=== PATIENT | male | born 1975 | race Caucasian/White ===

== ENCOUNTER 2017-03-14 21:41 | Observation (INO) | payer BC ==
[~2017-03-14] VITALS: Ht 172.7 cm; Wt 80.0 kg
[~2017-03-14 21:41] MED LIST: GLUCTAB PO; KCL10C PO; LEVO.025 PO; LISI10 PO; METF-324 PO; METF1000 PO
[2017-03-14 22:03] VITALS: BP 200/103; PULSE 64; RESP 20; TEMP 97.6; O2SAT 100
[2017-03-14] MEDS ORDERED: SODIUM CHLOR 0.9% 1000 ML INJ 1,000 ML IV SCH (22:13)
[2017-03-14] MEDS ORDERED: SODIUM CHLORIDE 0.9% FLUSH 10 ML FLUSH IV FLUSH PRN (22:15)
[2017-03-14] MEDS ORDERED: ONDANSETRON HCL 4 MG/2 ML VIAL IVP ONE (22:15)
[2017-03-14 22:29] LABS: AUTOMATED NEUTROPHIL # 9.1 TH/MM3 (1.8-7.7); BASOPHIL # 0.1 TH/MM3 (0-0.2); HEMATOCRIT 50.6 % (39.0-51.0); HEMOGLOBIN 16.7 GM/DL (13.0-17.0); LYMPH % 13.9 % (9.0-44.0); LYMPHOCYTE # 1.5 TH/MM3 (1.0-4.8); MEAN CORPUSCULAR HEMOGLOBIN 28.3 PG (27.0-34.0); MEAN PLATELET VOLUME 7.9 FL (7.0-11.0); MONO % 3.9 % (0.0-8.0); MONOCYTE # 0.4 TH/MM3 (0-0.9); NEUT % 81.2 % (16.0-70.0); PLATELET COUNT 264 TH/MM3 (150-450); RED BLOOD COUNT 5.88 MIL/MM3 (4.50-5.90); RED CELL DISTRIBUTION WIDTH 12.2 % (11.6-17.2); WHITE BLOOD COUNT 11.1 TH/MM3 (4.0-11.0)
[2017-03-14 22:40] LABS: CHLORIDE 101 MEQ/L (98-107); SODIUM (NA) 134 MEQ/L (136-145)
[2017-03-14 22:43] LABS: ALBUMIN 3.5 GM/DL (3.4-5.0); BICARBONATE 18.5 MEQ/L (21.0-32.0); BLOOD UREA NITROGEN 15 MG/DL (7-18); CALCIUM 9.2 MG/DL (8.5-10.1); GLUCOSE,RANDOM 349 MG/DL (74-106)
[2017-03-14 22:46] LABS: ALT (GPT) 39 U/L (12-78); AST (GOT) 29 U/L (15-37); GLOMERULAR FILTRATION RATE 67 ML/MIN (>89)
[2017-03-14 22:47] VITALS: BP 207/106; PULSE 60; RESP 18; O2SAT 99
[2017-03-14 22:48] LABS: TOTAL BILIRUBIN ADULT 0.7 MG/DL (0.2-1.0); TOTAL PROTEIN 7.8 GM/DL (6.4-8.2)
[2017-03-14 22:49] LABS: ALKALINE PHOSPHATASE 81 U/L (45-117)
[2017-03-14 22:56] LABS: BANDS 12 % (0-6); LYMPHOCYTES 11 % (9-44); MONOCYTES 4 % (0-8); NEUTROPHIL # MANUAL DIFF 9.4 TH/MM3 (1.8-7.7); POLYS (SEG NEUTROPHILS) 73 % (16-70)
[2017-03-14] MEDS: SODIUM CHLOR 0.9% 1000 ML INJ 1,000 ML IV SCH (22:56)
[2017-03-14] MEDS ORDERED: hydrALAZINE HCL 20 MG/ML VIAL IV PUSH ONE (23:00)
[2017-03-14] MEDS ORDERED: ONDANSETRON HCL 4 MG/2 ML VIAL IV ONE (23:00)
[2017-03-14] MEDS ORDERED: IOHEXOL 350 MG/ML 10 ML VIAL (for RAD DIAG) IVCONTRAST ONE (23:20)
--- NOTE | 2017-03-14 23:47 | RADRPT ---
EXAM DATE/TIME: 03/14/2017 23:17 [place] COMPARISON: CT ABDOMEN & PELVIS W CONTRAST, March 07, 2014, 21:12. INDICATIONS : Vomiting X 4 days IV CONTRAST: 96 cc Omnipaque 350 (iohexol) IV ORAL CONTRAST: No oral contrast ingested. RADIATION DOSE: 9.23 CTDIvol (mGy) MEDICAL HISTORY : Diabetes mellitus type 2. Hypertension. SURGICAL HISTORY : None. ENCOUNTER: Initial ACUITY: 4 - 6 days PAIN SCALE: 0/10 LOCATION: abdominal TECHNIQUE: Volumetric scanning of the abdomen and pelvis was performed. Using automated exposure control and ad justment of the mA and/or kV according to patient size, radiation dose was kept as low as reasonably achievable to obtain optimal diagnostic quality images. DICOM format image data is available electro nically for review and comparison. FINDINGS: The lung bases are clear. The osseous structures are intact. No pleural or pericardial effusions. Mil d hepatic steatosis. In the right lobe of the liver posteriorly a low-density focus is noted and inco mpletely characterized on this study measured 1.5 cm. Gallbladder, spleen, pancreas, adrenal glands, bilateral kidneys are normal in appearance. Stomach unremarkable. Urinary bladder is unremarkable. Th ere are calcifications of the vas deferens bilaterally. There is no evidence for bowel obstruction. A ppendix is normal. Prostate unremarkable. A few scattered colonic diverticuli are seen without eviden ce of diverticulitis. No free fluid or free air. Small bowel loops are unremarkable. CONCLUSION: 1. Hepatic steatosis. 2. Low-density liver lesion incompletely characterized on this study. Hemangioma would be the leading consideration. 3. A few diverticuli without evidence of diverticulitis. Sid Ashraf MD on March 14, 2017 at 23:41 Board Certified Radiologist. This report was verified electronically.
[2017-03-14 23:55] VITALS: BP 185/98; PULSE 70; RESP 18; O2SAT 100
--- NOTE | 2017-03-14 23:55 | PD ---
HPI Chief Complaint: GI Complaint Time Seen by Provider: 22:41 Travel History International Travel<30 days: No Contact w/Intl Traveler<30days: No Traveled to known affect area: No History of Present Illness HPI The patient is a 41-year-old male that states he has been vomiting for 3 days. He does have diarrhea. He feels extremely dehydrated. According to his girlfriend who has checked his blood sugars, his blood sugars have been in the 300 range. He is a metformin/glyburide controlled diabetic. He does not take insulin. His pain is a crampy pain and a 3/10. He denies any blood in the vomitus or stool. PFSH Past Medical History Autoimmune Disease: No Anxiety: Yes Depression: Yes Heart Rhythm Problems: No Cancer: No Cardiovascular Problems: Yes (HTN) High Cholesterol: Yes Chest Pain: Yes (STATES OCCASIONAL CHEST PAIN IF UNDER STRESS) Congestive Heart Failure: No Diabetes: Yes Patient Takes Glucophage: Yes Diminished Hearing: No Endocrine: Yes Gastrointestinal Disorders: Yes GERD: No Genitourinary: No Hiatal Hernia: No Hypertension: Yes Immune Disorder: No Implanted Vascular Access Dvce: No Musculoskeletal: Yes Neurologic: No Psychiatric: Yes (ANGER MANAGEMENT) Reproductive: No Respiratory: No Sickle Cell Disease: No Thyroid Disease: Yes Tetanus Vaccination: Unknown Influenza Vaccination: No ?: Not Past Surgical History Surgical History: No Previous Surgery Other Surgery: No Social History Alcohol Use: Yes Tobacco Use: No Substance Use: Yes (MARIJUANA daily) Allergies-Medications (Allergen,Severity, Reaction): Coded Allergies: shellfish derived (Unverified Allergy, Severe, Anaphylaxis, 03/15/17) Reported Meds & Prescriptions Reported Meds & Active Scripts Active Metformin (Metformin HCl) 1,000 Mg Tab 1,000 Mg PO BIDPC With meals Review of Systems Except as stated in HPI: all other systems reviewed are Neg Physical Exam Narrative GENERAL: The patient is alert, oriented 3 in moderate distress with his abdominal pain and persistent vomiting. He appears at least moderately dehydrated. His vital signs show blood pressure 200/103 but the rest of the vital signs are normal. SKIN: Focused skin assessment warm/dry. HEAD: Atraumatic. Normocephalic. EYES: Pupils equal and round. No scleral icterus. No injection or drainage. ENT: No nasal bleeding or discharge. Mucous membranes pink and moist. NECK: Trachea midline. No JVD. CARDIOVASCULAR: Regular rate and rhythm. No murmur appreciated. RESPIRATORY: No accessory muscle use. Clear to auscultation. Breath sounds equal bilaterally. GASTROINTESTINAL: Abdomen soft, with diffuse tenderness all 4 quadrants to direct palpation, nondistended. Hepatic and splenic margins not palpable. No guarding or rebound is present. MUSCULOSKELETAL: No obvious deformities. No clubbing. No cyanosis. No edema. NEUROLOGICAL: Awake and alert. No obvious cranial nerve deficits. Motor grossly within normal limits. Normal speech. PSYCHIATRIC: Appropriate mood and affect; insight and judgment normal. Data Data Last Documented VS Vital Signs Date Time Temp Pulse Resp B/P (MAP) Pulse Ox O2 Delivery O2 Flow Rate FiO2 03/14/17 23:55 70 18 185/98 (127) 100 Room Air 03/14/17 22:03 97.6 Orders Orders Complete Blood Count With Diff (03/14/17 22:13) Comprehensive Metabolic Panel (03/14/17 22:13) Lipase (03/14/17 22:13) Urinalysis - C+S If Indicated (03/14/17 22:13) Iv Access Insert/Monitor (03/14/17 22:13) Ecg Monitoring (03/14/17 22:13) Oximetry (03/14/17 22:13) Ondansetron Inj (Zofran Inj) (03/14/17 22:15) Sodium Chlor 0.9% 1000 Ml Inj (Ns 1000 M (03/14/17 22:13) Sodium Chloride 0.9% Flush (Ns Flush) (03/14/17 22:15) Beta Hydroxybutyrate (Acetone) (03/14/17 22:20) Hydralazine Inj (Apresoline Inj) (03/14/17 23:00) Sodium Chlor 0.9% 1000 Ml Inj (Ns 1000 M (03/14/17 23:00) Ondansetron Inj (Zofran Inj) (03/14/17 23:00) Ct Abd/Pel W Iv Contrast(Rout) (03/14/17 22:48) Iohexol 350 Inj (Omnipaque 350 Inj) (03/14/17 23:20) Prochlorperazine Inj (Compazine Inj) (03/15/17 00:00) Insulin Human Regular Inj (Novolin R Inj (03/15/17 00:15) Place In Observation (03/15/17 ) Vital Signs (Adult) Q4H (03/15/17 00:25) Activity Oob With Assistance (03/15/17 00:25) Diet Npo (03/15/17 Breakfast) Sodium Chlor 0.9% 1000 Ml Inj (Ns 1000 M (03/15/17 00:25) Sodium Chloride 0.9% Flush (Ns Flush) (03/15/17 00:30) Sodium Chloride 0.9% Flush (Ns Flush) (03/15/17 09:00) Acetaminophen (Tylenol) (03/15/17 00:30) Ondansetron Inj (Zofran Inj) (03/15/17 00:30) Comprehensive Metabolic Panel (03/16/17 06:00) Complete Blood Count With Diff (03/16/17 06:00) Scd Bilateral/Knee High ZOLTAN.BID (03/15/17 00:25) Naloxone Inj (Narcan Inj) (03/15/17 00:30) Docusate Sodium-Senna (Laura-Colace) (03/15/17 09:00) Magnesium Hydroxide Liq (Milk Of Magnesi (03/15/17 00:30) Sennosides (Senokot) (03/15/17 00:30) Bisacodyl Supp (Dulcolax Supp) (03/15/17 00:30) Lactulose Liq (Lactulose Liq) (03/15/17 00:30) Prochlorperazine Inj (Compazine Inj) (03/15/17 00:30) Bedside Glucose ZOLTAN.CSUGAR&03 (03/15/17 00:25) Blood Glucose Goal (Criteria) (03/15/17 00:25) Hypoglycemia 70 Mg/Dl Or < (03/15/17 00:25) Notify Dr: Other (03/15/17 00:25) Dextrose 50% In Valeriy (Vial) Inj (D50w (Vi (03/15/17 00:30) Glucagon Inj (Glucagon Inj) (03/15/17 00:30) Insulin Aspart Supplemtl Scale (Novolog (03/15/17 08:00) Basic Metabolic Panel (Bmp) (03/15/17 01:00) Labs Laboratory Tests Test 03/14/17 22:20 03/15/17 00:24 White Blood Count 11.1 TH/MM3 Red Blood Count 5.88 MIL/MM3 Hemoglobin 16.7 GM/DL Hematocrit 50.6 % Mean Corpuscular Volume 86.0 FL Mean Corpuscular Hemoglobin 28.3 PG Mean Corpuscular Hemoglobin Concent 33.0 % Red Cell Distribution Width 12.2 % Platelet Count 264 TH/MM3 Mean Platelet Volume 7.9 FL Neutrophils (%) (Auto) 81.2 % Lymphocytes (%) (Auto) 13.9 % Monocytes (%) (Auto) 3.9 % Eosinophils (%) (Auto) 0.0 % Basophils (%) (Auto) 1.0 % Neutrophils # (Auto) 9.1 TH/MM3 Lymphocytes # (Auto) 1.5 TH/MM3 Monocytes # (Auto) 0.4 TH/MM3 Eosinophils # (Auto) 0.0 TH/MM3 Basophils # (Auto) 0.1 TH/MM3 CBC Comment AUTO DIFF Differential Total Cells Counted 100 Neutrophils % (Manual) 73 % Band Neutrophils % 12 % Lymphocytes % 11 % Monocytes % 4 % Neutrophils # (Manual) 9.4 TH/MM3 Differential Comment FINAL DIFF MANUAL Platelet Estimate NORMAL Platelet Morphology Comment NORMAL Red Cell Morphology Comment NORMAL Blood Urea Nitrogen 15 MG/DL Creatinine 1.20 MG/DL Random Glucose 349 MG/DL Total Protein 7.8 GM/DL Albumin 3.5 GM/DL Calcium Level 9.2 MG/DL Alkaline Phosphatase 81 U/L Aspartate Amino Transf (AST/SGOT) 29 U/L Alanine Aminotransferase (ALT/SGPT) 39 U/L Total Bilirubin 0.7 MG/DL Sodium Level 134 MEQ/L Potassium Level 3.8 MEQ/L Chloride Level 101 MEQ/L Carbon Dioxide Level 18.5 MEQ/L Anion Gap 15 MEQ/L Estimat Glomerular Filtration Rate 67 ML/MIN Lipase 83 U/L B-Hydroxybutyrate 3.01 MMOL/L [facility] Medical Decision Making Medical Screen Exam Complete: Yes Emergency Medical Condition: Yes Medical Record Reviewed: Yes Interpretation(s) The CBC shows a white count of 11,100 but is otherwise unremarkable. The complete metabolic profile shows a sodium of 134, bicarbonate of 18.5, glucose of 349 and GFR 67 but is otherwise unremarkable. The lipase is normal. The anion gap is 15. Differential Diagnosis Viral gastroenteritis, diabetic ketoacidosis, dehydration, electrolyte disorder , pancreatitis Narrative Course The patient has elevated blood sugar and elevated beta hydroxybutyrate in the blood but does not have diabetic ketoacidosis. The anion gap is only 15. The patient is not breathing rapidly. He does have intractable vomiting and is still vomiting after 8 mg of Zofran until milligrams of Compazine. He needs to be admitted for IV fluids, IV antiemetics and IV insulin. He has already gotten 15 units of insulin IV. I discussed the patient with Dr. Schafer, the patient will be admitted to her here at [facility]. Physician Communication Physician Communication I discussed the patient with Dr. Schafer, the patient will be admitted to her here at [employer]. Diagnosis Primary Impression: Intractable vomiting Additional Impressions: Dehydration, moderate Poorly controlled diabetes mellitus Admitting Information Admitting Physician Requests: Admit Osiel Geronimo MD Mar 14, 2017 23:55
[2017-03-15] MEDS ORDERED: PROCHLORPERAZINE INJ 10 MG/2 ML VIAL IV PUSH ONE
[2017-03-15] MEDS ORDERED: INSULIN HUMAN REGULAR 1,000 UNITS/10 ML VIAL IV PUSH ONE (00:15)
[2017-03-15] MEDS ORDERED: PROCHLORPERAZINE INJ 10 MG/2 ML VIAL IM PRN (00:30)
[2017-03-15] MEDS ORDERED: LACTULOSE SYRUP 20 GM/30 ML CUP PO PRN (00:30)
[2017-03-15] MEDS ORDERED: BISACODYL 10 MG SUPP RECTAL PRN (00:30)
[2017-03-15] MEDS ORDERED: MAGNESIUM HYDROXIDE SUSP 30 ML CUP PO PRN (00:30)
[2017-03-15] MEDS ORDERED: GLUCAGON 1 MG/ML VIAL OTHER PRN (00:30)
[2017-03-15] MEDS ORDERED: SODIUM CHLORIDE 0.9% FLUSH 10 ML FLUSH IV FLUSH PRN (00:30)
[2017-03-15] MEDS ORDERED: ACETAMINOPHEN 325 MG TAB PO PRN (00:30)
[2017-03-15] MEDS ORDERED: DEXTROSE 50% IN WATER 50 ML VIAL(D50) IV PUSH PRN (00:30)
[2017-03-15] MEDS ORDERED: NALOXONE HCL 0.4 MG/ML AMP IV PUSH PRN (00:30)
[2017-03-15] MEDS ORDERED: SENNOSIDES 8.6 MG TAB PO PRN (00:30)
[2017-03-15 00:46] LABS: BILIRUBIN, URINE NEG (NEG); BLOOD, URINE TRACE (NEG); GLUCOSE,URINE 1000 OR GREATER mg/dL (NEG); KETONE, URINE 40 mg/dL (NEG); NITRITE,URINE NEG (NEG); URINE LEUKOCYTE ESTERASE NEG (NEG)
[2017-03-15 00:51] LABS: URINE COLOR YELLOW (YELLW/STRAW)
[2017-03-15 00:52] LABS: RBC, URINE 0-2 /hpf (0-3); SQUAMOUS EPITHELIAL CELL URINE 0-5 /hpf (0-5); WBC, URINE 0-2 /hpf (0-5)
[2017-03-15] MEDS: SODIUM CHLOR 0.9% 1000 ML INJ 1,000 ML IV SCH ×5 (01:21→21:01)
[2017-03-15 01:32] LABS: BICARBONATE 19.3 MEQ/L (21.0-32.0); CALCIUM 8.2 MG/DL (8.5-10.1); CREATININE 1.1 MG/DL (0.60-1.30)
[2017-03-15 02:17] VITALS: BP 162/93; PULSE 66; RESP 22; TEMP 99.4; O2SAT 99
[2017-03-15 08:00] VITALS: BP 180/90; PULSE 61; RESP 18; TEMP 98; O2SAT 98
[2017-03-15] MEDS: SODIUM CHLORIDE 0.9% FLUSH 10 ML FLUSH IV FLUSH SCH ×2 (08:09→21:00)
[2017-03-15] MEDS: DOCUSATE SODIUM 50 MG/SENNA 8.6 MG TAB PO SCH ×2 (08:09→21:00)
[2017-03-15] MEDS: INSULIN ASPART SUPPLEMENTAL SCALE SQ SCH ×4 (08:50→21:00)
[2017-03-15 10:04] LABS: AUTOMATED NEUTROPHIL # 6.8 TH/MM3 (1.8-7.7); BASOPHIL % 0.4 % (0.0-2.0); EOSINOPHIL # 0.1 TH/MM3 (0-0.4); EOSINOPHIL % 1.5 % (0.0-4.0); HEMATOCRIT 43.7 % (39.0-51.0); HEMOGLOBIN 15.4 GM/DL (13.0-17.0); LYMPH % 15.6 % (9.0-44.0); LYMPHOCYTE # 1.4 TH/MM3 (1.0-4.8); MEAN CELL VOLUME 86.1 FL (80.0-100.0); MEAN CORPUSCULAR HEMOGLOBIN 30.3 PG (27.0-34.0); MEAN CORPUSCULAR HGB CONC 35.2 % (32.0-36.0); MEAN PLATELET VOLUME 8.1 FL (7.0-11.0); MONO % 5.3 % (0.0-8.0); MONOCYTE # 0.5 TH/MM3 (0-0.9); NEUT % 77.2 % (16.0-70.0); PLATELET COUNT 228 TH/MM3 (150-450); RED BLOOD COUNT 5.07 MIL/MM3 (4.50-5.90); RED CELL DISTRIBUTION WIDTH 12.2 % (11.6-17.2); WHITE BLOOD COUNT 8.8 TH/MM3 (4.0-11.0)
[2017-03-15] MEDS: ONDANSETRON HCL 4 MG/2 ML VIAL IVP PRN ×3 (10:12→23:16)
[2017-03-15 10:27] LABS: BICARBONATE 20.7 MEQ/L (21.0-32.0); MAGNESIUM 1.9 MG/DL (1.5-2.5)
[2017-03-15 10:30] LABS: CREATININE 0.97 MG/DL (0.60-1.30)
[2017-03-15 12:00] VITALS: BP 130/67; PULSE 60; RESP 20; TEMP 98.5; O2SAT 97
--- NOTE | 2017-03-15 12:36 | HHI.HP ---
HPI Service [facility] Primary Care Physician No Primary Care Physician Admission Diagnosis intractable vomiting, dehydration, diabetes mellitus poor control Diagnoses: (1) Intractable nausea and vomiting Diagnosis: Principal (2) Diabetic ketoacidosis Diagnosis: Principal Chief Complaint: Nausea vomiting Travel History International Travel<30 Days: No Contact w/Intl Traveler <30 Da: No Traveled to Known Affected Are: No History of Present Illness 41-year-old male with known history of diabetes, hypertension who presented to the hospital because of nausea vomiting. Patient states that all her symptoms started on Saturday when he went to the [facility] and was diagnosed with influenza B. He was discharged with 3 medications, however he does not know the name. At that time his blood sugars were 200s. Patient is not checking his sugars on a regular basis. Patient states that he was doing well on Saturday but then he started having intractable nausea vomiting, he was not able to tolerate any liquids or solids. Because of that reason he came to emergency department for evaluation. Patient had workup done emergency department found to have metabolic acidosis, elevated beta hydroxybutyrate, because of his intractable nausea vomiting is recommended by ER physician that the patient be observed in the hospital. Review of Systems Gastrointestinal: COMPLAINS OF: Nausea, Vomiting Except as stated in HPI: all other systems reviewed are Neg Past Family Social History Past Medical History Diabetes Hypertension Past Surgical History Patient denies any outpatient surgeries Reported Medications Reported Meds & Active Scripts Active Metformin (Metformin HCl) 1,000 Mg Tab 1,000 Mg PO BIDPC With meals Allergies: Coded Allergies: shellfish derived (Unverified Allergy, Severe, Anaphylaxis, 03/15/17) Family History Reviewed and significant for mother with hypertension, diabetes. Father from cancer Social History Patient does smoke one pack a cigarettes a weeks for the last 2 months. Does drink alcohol on the weekends. He does smoke marijuana daily Physical Exam Vital Signs Vital Signs Date Time Temp Pulse Resp B/P (MAP) Pulse Ox O2 Delivery O2 Flow Rate FiO2 03/15/17 08:00 98.0 61 18 180/90 (120) 98 03/15/17 02:17 99.4 66 22 162/93 (116) 99 2/2/18 01:51 03/14/17 23:55 70 18 185/98 (127) 100 Room Air 03/14/17 22:47 60 18 207/106 (139) 99 Room Air 03/14/17 22:03 97.6 64 20 200/103 (135) 100 Physical Exam GENERAL: Well-developed, well-nourished, in no acute distress. alert and orientated HEENT: Head is normocephalic without any lesions or masses noted. Facial features are symmetric. Eyes: Pupils equal round reactive to light. Extraocular muscles are intact. Conjunctivae were clear. Oropharyngeal: Pharynx without any erythema edema. Tongue is midline without deviation. Buccal mucosa is moist without any masses or lesions NECK: Supple without any masses. Trachea midline no deviation. No JVD, no bruits are appreciated CARDIAC: Regular rhythm, regular rate. S1/S2 are heard. No murmurs gallops or rubs. LUNGS: Clear to auscultation bilaterally. No wheeze, rhonchi or rales. No use of accessory muscles on inspiration or expiration. ABDOMEN: Soft, nontender. Nondistended. Bowel sounds heard in all 4 quadrants. No organomegaly or masses. Negative rebound, negative guarding EXTREMITIES: No edema, pulses are equal bilaterally. No cyanosis or clubbing NEUROLOGY: Mood and affect appear appropriate. Cranial nerves II through XII grossly intact. Muscle strength 5/5 in upper and lower extremities bilaterally. Deep tendon reflexes are 2+ in upper and lower extremities bilaterally. Laboratory Laboratory Tests Test 03/14/17 22:20 03/15/17 00:24 03/15/17 00:58 03/15/17 09:25 White Blood Count 11.1 8.8 Red Blood Count 5.88 5.07 Hemoglobin 16.7 15.4 Hematocrit 50.6 43.7 Mean Corpuscular Volume 86.0 86.1 Mean Corpuscular Hemoglobin 28.3 30.3 Mean Corpuscular Hemoglobin Concent 33.0 35.2 Red Cell Distribution Width 12.2 12.2 Platelet Count 264 228 Mean Platelet Volume 7.9 8.1 Neutrophils (%) (Auto) 81.2 77.2 Lymphocytes (%) (Auto) 13.9 15.6 Monocytes (%) (Auto) 3.9 5.3 Eosinophils (%) (Auto) 0.0 1.5 Basophils (%) (Auto) 1.0 0.4 Neutrophils # (Auto) 9.1 6.8 Lymphocytes # (Auto) 1.5 1.4 Monocytes # (Auto) 0.4 0.5 Eosinophils # (Auto) 0.0 0.1 Basophils # (Auto) 0.1 0.0 CBC Comment AUTO DIFF DIFF FINAL Differential Total Cells Counted 100 Neutrophils % (Manual) 73 Band Neutrophils % 12 Lymphocytes % 11 Monocytes % 4 Neutrophils # (Manual) 9.4 Differential Comment FINAL DIFF MANUAL Platelet Estimate NORMAL Platelet Morphology Comment NORMAL Red Cell Morphology Comment NORMAL Blood Urea Nitrogen 15 16 15 Creatinine 1.20 1.10 0.97 Random Glucose 349 293 261 Total Protein 7.8 Albumin 3.5 Calcium Level 9.2 8.2 8.0 Alkaline Phosphatase 81 Aspartate Amino Transf (AST/SGOT) 29 Alanine Aminotransferase (ALT/SGPT) 39 Total Bilirubin 0.7 Sodium Level 134 139 139 Potassium Level 3.8 3.2 3.8 Chloride Level 101 107 106 Carbon Dioxide Level 18.5 19.3 20.7 Anion Gap 15 13 12 Estimat Glomerular Filtration Rate 67 75 86 Lipase 83 B-Hydroxybutyrate 3.01 2.62 Urine Color YELLOW Urine Turbidity CLEAR Urine pH 6.0 Urine Specific Lipan GREATER THAN 1.035 Urine Protein 30 Urine Glucose (UA) 1000 OR GREATER Urine Ketones 40 Urine Occult Blood TRACE Urine Nitrite NEG Urine Bilirubin NEG Urine Leukocyte Esterase NEG Urine RBC 0-2 Urine WBC 0-2 Urine Squamous Epithelial Cells 0-5 Urine Bacteria NONE Microscopic Urinalysis Comment CULT NOT INDICATED Magnesium Level 1.9 Result Diagram: 03/15/1792403/15/17924 Imaging Last Impressions Abdomen/Pelvis CT 03/14/17 9816 Signed Impressions: Service Date/Time: March 23:17 - CONCLUSION: 1. Hepatic steatosis. 2. Low-density liver lesion incompletely characterized on this study. Hemangioma would be the leading consideration. 3. A few diverticuli without evidence of diverticulitis. MD Margret Curiel VTE Risk Assessment Margret VTE Risk Assessment: No/Low Risk (score <= 1) Caprini Risk Assessment Model Point Value = 1 Point Value = 2 Point Value = 3 Point Value = 5 Age 41-60 Minor surgery BMI > 25 kg/m2 Swollen legs Varicose veins or History of unexplained or recurrent spontaneous Oral contraceptives or hormone replacement Sepsis (< 1 month) Serious lung disease, including pneumonia (< 1 month) Abnormal pulmonary function Acute myocardial infarction Congestive heart failure (< 1 month) History of inflammatory bowel disease Medical patient at bed rest Age 61-74 Arthroscopic surgery Major open surgery (> 45 min) Laparoscopic surgery (> 45 min) Malignancy Confined to bed (> 72 hours) Immobilizing plaster cast Central venous access Age >= 75 History of VTE Family history of VTE Factor V Leiden Prothrombin [id number] Lupus anticoagulant Anticardiolipin antibodies Elevated serum homocysteine Heparin-induced thrombocytopenia Other congenital or acquired thrombophilia Stroke (< 1 month) Elective arthroplasty Hip, pelvis, or leg fracture Acute spinal cord injury (< 1 month) Prophylaxis Regimen Total Risk Factor Score Risk Level Prophylaxis Regimen 0-1 Low Early ambulation 2 Moderate Order ONE of the following: *Sequential Compression Device (SCD) *Heparin 5000 units SQ BID 3-4 Higher Order ONE of the following medications: *Heparin 5000 units SQ TID *Enoxaparin/Lovenox 40 mg SQ daily (WT < 150 kg, CrCl > 30 mL/min) *Enoxaparin/Lovenox 30 mg SQ daily (WT < 150 kg, CrCl > 10-29 mL/min) *Enoxaparin/Lovenox 30 mg SQ BID (WT < 150 kg, CrCl > 30 mL/min) AND/OR *Sequential Compression Device (SCD) 5 or more Highest Order ONE of the following medications: *Heparin 5000 units SQ TID (Preferred with Epidurals) *Enoxaparin/Lovenox 40 mg SQ daily (WT < 150 kg, CrCl > 30 mL/min) *Enoxaparin/Lovenox 30 mg SQ daily (WT < 150 kg, CrCl > 10-29 mL/min) *Enoxaparin/Lovenox 30 mg SQ BID (WT < 150 kg, CrCl > 30 mL/min) AND *Sequential Compression Device (SCD) Assessment and Plan Assessment and Plan Non-anion gap metabolic acidosis in a patient with diabetes Diabetes uncontrolled with elevated beta hydroxybutyrate, pseudohyponatremia, Continue IV fluids continue monitor BMP Accu-Cheks with sliding scale insulin intractable nausea vomiting, resolved Could be secondary to recent influenza diagnosis, metabolic acidosis, cyclic vomiting from daily marijuana use Continue IV fluids Zofran as needed for nausea vomiting Advance diet as tolerated Hypertension, untreated Start lisinopril 10 mg daily Clonidine as needed DVT prevention low risk, early ambulation Miah Geronimo Mar 15, 2017 12:36
[2017-03-15] MEDS ORDERED: cloNIDine HCL 0.1 MG TAB PO PRN (12:45)
[2017-03-15] MEDS: LISINOPRIL 10 MG TAB PO SCH (14:08)
[2017-03-15 14:45] LABS: HEMOGLOBIN A1C 10.4 % (4.3-6.0)
[2017-03-15 16:00] VITALS: BP 130/70; PULSE 77; RESP 18; TEMP 98.8; O2SAT 97
[2017-03-15 20:00] VITALS: BP 182/93; PULSE 62; RESP 20; TEMP 98.3; O2SAT 100
[2017-03-16] VITALS: BP 171/88; PULSE 59; RESP 20; TEMP 98.3; O2SAT 99
[2017-03-16] MEDS: SODIUM CHLOR 0.9% 1000 ML INJ 1,000 ML IV SCH ×2 (04:01→08:29)
[2017-03-16 06:58] LABS: AUTOMATED NEUTROPHIL # 7.4 TH/MM3 (1.8-7.7); BASOPHIL # 0.2 TH/MM3 (0-0.2); BASOPHIL % 2.3 % (0.0-2.0); EOSINOPHIL % 0.1 % (0.0-4.0); HEMATOCRIT 44.2 % (39.0-51.0); HEMOGLOBIN 14.6 GM/DL (13.0-17.0); LYMPH % 16.7 % (9.0-44.0); LYMPHOCYTE # 1.7 TH/MM3 (1.0-4.8); MEAN CELL VOLUME 85.4 FL (80.0-100.0); MEAN CORPUSCULAR HEMOGLOBIN 28.1 PG (27.0-34.0); MEAN PLATELET VOLUME 7.6 FL (7.0-11.0); MONO % 7.8 % (0.0-8.0); MONOCYTE # 0.8 TH/MM3 (0-0.9); NEUT % 73.1 % (16.0-70.0); PLATELET COUNT 211 TH/MM3 (150-450); RED BLOOD COUNT 5.18 MIL/MM3 (4.50-5.90); RED CELL DISTRIBUTION WIDTH 11.8 % (11.6-17.2); WHITE BLOOD COUNT 10.1 TH/MM3 (4.0-11.0)
[2017-03-16 07:20] LABS: CHLORIDE 105 MEQ/L (98-107); SODIUM (NA) 137 MEQ/L (136-145)
[2017-03-16 07:24] LABS: CALCIUM 7.9 MG/DL (8.5-10.1)
[2017-03-16 08:00] VITALS: BP 198/96; PULSE 62; RESP 18; TEMP 97.3; O2SAT 100
[2017-03-16 08:14] LABS: ALBUMIN 2.9 GM/DL (3.4-5.0); ALKALINE PHOSPHATASE 62 U/L (45-117); ALT (GPT) 30 U/L (12-78); AST (GOT) 19 U/L (15-37); BICARBONATE 21.8 MEQ/L (21.0-32.0); BLOOD UREA NITROGEN 11 MG/DL (7-18); CREATININE 0.74 MG/DL (0.60-1.30); GLOMERULAR FILTRATION RATE 118 ML/MIN (>89); GLUCOSE,RANDOM 216 MG/DL (74-106); TOTAL BILIRUBIN ADULT 0.6 MG/DL (0.2-1.0); TOTAL PROTEIN 6.3 GM/DL (6.4-8.2)
[2017-03-16] MEDS: DOCUSATE SODIUM 50 MG/SENNA 8.6 MG TAB PO SCH (08:25)
[2017-03-16] MEDS: LISINOPRIL 10 MG TAB PO SCH (08:25)
[2017-03-16] MEDS: ONDANSETRON HCL 4 MG/2 ML VIAL IVP PRN (08:26)
[2017-03-16] MEDS: SODIUM CHLORIDE 0.9% FLUSH 10 ML FLUSH IV FLUSH SCH (08:26)
[2017-03-16] MEDS: INSULIN ASPART SUPPLEMENTAL SCALE SQ SCH ×2 (08:26→12:00)
[2017-03-16] MEDS ORDERED: GLUCKIT15 (08:45)
[2017-03-16] MEDS ORDERED: INSU1MIS15 (08:45)
[2017-03-16] MEDS ORDERED: LEVEMIR SQ (08:45)
[2017-03-16] MEDS ORDERED: LISI10TA3 PO (08:45)
[2017-03-16] MEDS ORDERED: LANCETS1 MI1 (08:45)
[2017-03-16] MEDS ORDERED: GLUCTES12 (08:45)
--- NOTE | 2017-03-16 08:45 | HHI.DCPOC ---
Discharge Care Plan Diagnosis: (1) Poorly controlled diabetes mellitus Goals to Promote Your Health * To prevent worsening of your condition and complications * To maintain your health at the optimal level Directions to Meet Your Goals Take your medications as prescribed Follow your dietary instruction Follow activity as directed Keep your appointments as scheduled Take your immunizations and boosters as scheduled If your symptoms worsen call your PCP, if no PCP go to Urgent Care Center or Emergency Room Smoking is Dangerous to Your Health. Avoid second hand smoke Call the 24-hour hour crisis hotline for domestic abuse at Miah Geronimo Mar 16, 2017 08:45
[2017-03-16 12:30] VITALS: BP 171/78; PULSE 80; RESP 18; TEMP 98.2; O2SAT 98
--- NOTE | 2017-03-16 13:35 | HHI.DS ---
Discharge Summary Admission Date Mar 15, 2017 at 00:30 Discharge Date: Mar 16, 2017 Admitting Diagnosis intractable vomiting, dehydration, diabetes mellitus poor control (1) Intractable nausea and vomiting ICD Code: R11.2 - Nausea with vomiting, unspecified Diagnosis: Principal (2) Diabetic ketoacidosis ICD Code: E13.10 - Other specified diabetes mellitus with ketoacidosis without coma Diagnosis: Principal Procedures None Brief History - From Admission 41-year-old male with known history of diabetes, hypertension who presented to the hospital because of nausea vomiting. Patient states that all her symptoms started on Saturday when he went to the [facility] and was diagnosed with influenza B. He was discharged with 3 medications, however he does not know the name. At that time his blood sugars were 200s. Patient is not checking his sugars on a regular basis. Patient states that he was doing well on Saturday but then he started having intractable nausea vomiting, he was not able to tolerate any liquids or solids. Because of that reason he came to emergency department for evaluation. Patient had workup done emergency department found to have metabolic acidosis, elevated beta hydroxybutyrate, because of his intractable nausea vomiting is recommended by ER physician that the patient be observed in the hospital. CBC/BMP: 03/16/17 0649 03/16/17 0649 Significant Findings Laboratory Tests Test 03/14/17 22:20 03/15/17 00:24 03/15/17 00:58 03/15/17 09:25 White Blood Count 11.1 TH/MM3 (4.0-11.0) Neutrophils (%) (Auto) 81.2 % (16.0-70.0) 77.2 % (16.0-70.0) Neutrophils # (Auto) 9.1 TH/MM3 (1.8-7.7) Neutrophils % (Manual) 73 % (16-70) Band Neutrophils % 12 % (0-6) Neutrophils # (Manual) 9.4 TH/MM3 (1.8-7.7) Random Glucose 349 MG/DL (74-106) 293 MG/DL (74-106) 261 MG/DL (74-106) Sodium Level 134 MEQ/L (136-145) Carbon Dioxide Level 18.5 MEQ/L (21.0-32.0) 19.3 MEQ/L (21.0-32.0) 20.7 MEQ/L (21.0-32.0) Estimat Glomerular Filtration Rate 67 ML/MIN (>89) 75 ML/MIN (>89) 86 ML/MIN (>89) B-Hydroxybutyrate 3.01 MMOL/L (0.00-0.39) 2.62 MMOL/L (0.00-0.39) Urine Specific [place] GREATER THAN 1.035 Urine Protein 30 mg/dL (NEG-TRACE) Urine Glucose (UA) 1000 OR GREATER mg/dL Urine Ketones 40 mg/dL (NEG) Calcium Level 8.2 MG/DL (8.5-10.1) 8.0 MG/DL (8.5-10.1) Potassium Level 3.2 MEQ/L (3.5-5.1) Hemoglobin A1c 10.4 % (4.3-6.0) Test 03/16/17 06:49 Neutrophils (%) (Auto) 73.1 % (16.0-70.0) Basophils (%) (Auto) 2.3 % (0.0-2.0) Random Glucose 216 MG/DL (74-106) Total Protein 6.3 GM/DL (6.4-8.2) Albumin 2.9 GM/DL (3.4-5.0) Calcium Level 7.9 MG/DL (8.5-10.1) Potassium Level 3.4 MEQ/L (3.5-5.1) Imaging Last Impressions Abdomen/Pelvis CT 03/14/17 9653 Signed Impressions: Service Date/Time: March 23:17 - CONCLUSION: 1. Hepatic steatosis. 2. Low-density liver lesion incompletely characterized on this study. Hemangioma would be the leading consideration. 3. A few diverticuli without evidence of diverticulitis. Sid Ashraf MD PE at Discharge GENERAL: Well-developed, well-nourished, in no acute distress. alert and orientated HEENT: Head is normocephalic without any lesions or masses noted. Facial features are symmetric. Eyes: Extraocular muscles are intact. Conjunctivae were clear. NECK: Supple without any masses. Trachea midline no deviation. No JVD, CARDIAC: Regular rhythm, regular rate. S1/S2 are heard. No murmurs gallops or rubs. LUNGS: Clear to auscultation bilaterally. No wheeze, rhonchi or rales. No use of accessory muscles on inspiration or expiration. ABDOMEN: Soft, nontender. Nondistended. Bowel sounds heard in all 4 quadrants. No organomegaly or masses. Negative rebound, negative guarding EXTREMITIES: No edema, pulses are equal bilaterally. No cyanosis or clubbing NEUROLOGY: Mood and affect appear appropriate. Cranial nerves II through XII grossly intact. Moving all extremities, speech is clear Hospital Course Is a 41 year-old male with known history of diabetes, hypertension who originally presented to hospital because of intractable nausea vomiting. Patient presentation is rather complicated secondary to patient recently been diagnosed with influenza B the patient has been having nausea vomiting since then which is complicated by diabetes which he did present with a non-anion gap metabolic acidosis, uncontrolled diabetes, elevated beta hydroxybutyrate. Was admitted the hospital with IV fluids, anti-emetics, diet was advanced. Workup was performed with hemoglobin A1c 10.4. Patient with uncontrolled diabetes and rather poor outpatient management. Patient does not monitor his glucose on a regular basis. Counseled patient on appropriate management of his diabetes, diabetic diet. Nurse instructed patient on insulin injections. We'll resume patient's metformin, patient having given total of 13 units of insulin over the last 24 hours. Would recommend starting Levemir insulin 5 units daily. Patient has been tolerating diet with some mild nausea. There is no indication of any recurrent vomiting. Only emesis documentation was on 03/14/17 of 300 mL' s. Patient clinically stable this time. Recommend patient be discharged home in stable condition, follow-up with primary medical doctor, improved diabetic management with Accu-Cheks before meals and at bedtime with monitoring with a sly and presenting to his primary medical doctor for adjustment of medications. Patient was given prescriptions for glucometer, lancets, glucometer test strips, insulin syringes, Levemir. Will plan discharge accordingly. Pt Condition on Discharge: Stable Discharge Disposition: Discharge Home Discharge Time: > 30 minutes Discharge Instructions DIET: Follow Instructions for: Diabetic Diet Activities you can perform: Regular-No Restrictions Activities to Avoid: Driving for 24 hrs Follow up Referrals: PCP Follow-up - 1 Week New Medications: Blood Glucose Monitoring W/Device (Glucocom Blood Glucose Mo W/Device) 1 Kit Kit KIT .XX DIRECTED for Blood Sugar Management, #1 Continue to check blood sugars before meals and at bedtime Glucocom Test Strips (Glucocom Test Strips) 1 Rosemarie Rosemarie EA .XX DIRECTED for Blood Sugar Management, #1 Insulin Detemir Inj (Levemir Inj) 1,000 unit/ 10 ML Vial 5 UNITS SQ HS for Blood Sugar Management, #1 VIAL 0 Refills Do not mix with any other Insulin. Insulin Syringe/U-100/31G X 5/16" 1 ml (Insulin Syringe/U-100/31G X 5/16" 1 ml) 31 Gauge X 5/16" Mis EA .XX DIRECTED for Blood Sugar Management, #1 0 Refills Lancets (Lancets) 1 Mis Mis EA .XX DIRECTED for Blood Sugar Management, #1 0 Refills Lisinopril (Lisinopril) 10 Mg Tab 10 MG PO DAILY for Blood Pressure Management for 30 Days, #30 TAB Continued Medications: Metformin (Metformin) 1,000 Mg Tab 1000 MG PO BIDPC for Blood Sugar Management, #60 TAB 6 Refills With meals Miah Geronimo Mar 16, 2017 13:35
[2017-03-16 15:24] VITALS: BP 161/98; PULSE 84; RESP 16; TEMP 98; O2SAT 100
[2017-03-16] MEDS ORDERED: METF500T PO (16:18)
== END 2017-03-16 16:45 | disposition home or self-care (01) ==
LOC: PHED 21:41 → PHEDA 03-15 00:30 → INTOOBSV 03-15 00:30 → PHEDA 03-15 00:50 → UNDOADMIN 03-15 00:50 → PH3A 03-15 01:55
PROVIDERS: ADMIT Hospitalist; ATTEND Hospitalist
DX: E11.10 Type 2 diabetes mellitus with ketoacidosis without coma (principal); E86.0 Dehydration; I10 Essential (primary) hypertension; J10.1 Influenza due to other identified influenza virus with other respiratory manifestations; F12.90 Cannabis use, unspecified, uncomplicated; F17.210 Nicotine dependence, cigarettes, uncomplicated; Z79.84 Long term (current) use of oral hypoglycemic drugs
CPT/HCPCS: 74177; 80048; 80053; 81001; 82010; 82948; 83036; 83690; 83735; 85025; 96361; 96372; 96374; 96375; 96376; 99285; G0378; J0360; J0780; J1815; J2405; J7030; Q9967; 85007; 85027